=== PATIENT | male | born 1965 | race Caucasian/White ===

== ENCOUNTER 2022-09-17 18:03 | Inpatient (IN) | payer OTHER ==
[2022-09-17] VITALS (8 sets, daily range): BP systolic 116–125; BP diastolic 72–87
[~2022-09-17] VITALS: Ht 170.2 cm; Wt 96.1 kg
[~2022-09-17 18:03] MED LIST: aspirin 81mg tab.chew ONE; heparin 10,000 units/1 ML INJ ONE; heparin, porcine-25,000 units/D5-250ml premix IV ONE; metoprolol tartrate 1mg/ml inj IV ONE; nitroGLYCERIN in D5W 50mg/250ml (Tridil) infusion IV ONE
[2022-09-17] MEDS ORDERED: aspirin 81mg tab.chew PO ONE (18:15)
[2022-09-17] MEDS ORDERED: ondansetron/PF 4mg/2ml inj IV ONE (18:17)
[2022-09-17] MEDS: morphine 4 MG/ML inj SYRINge IV PRN ×2 (18:20→18:22)
[2022-09-17] MEDS ORDERED: midazolam 1 mg/ML 2ml injection ONE (18:20)
[2022-09-17] MEDS ORDERED: fentaNYL/PF 50MCG/1 ML 2ML syringe ONE (18:20)
[2022-09-17] MEDS ORDERED: heparin 1,000unit/ml 10ml vial 10 ML ONE (18:20)
--- NOTE | 2022-09-17 18:21 | NUR ---
to hospital laboratory technician
[2022-09-17] MEDS ORDERED: heparin 25,000 UNIT/250ml bag 250 ML IV PRN ×2 (18:25→18:39)
[2022-09-17 18:32] LABS: BASOPHILS # (AUTO) 0.1 X10'3 (0-0.2); BASOPHILS % (AUTO) 0.6 % (0-1); EOSINOPHILS # (AUTO) 0.6 X10'3 (0-0.9); EOSINOPHILS % (AUTO) 4.8 % (0-6); HEMATOCRIT 41.4 % (42.0-52.0); HEMOGLOBIN 13.7 g/dl (14.0-17.9); LYMPHOCYTES # (AUTO) 4.8 X10'3 (1.1-4.8); LYMPHOCYTES % (AUTO) 40.7 % (21-51); MEAN CORPUSCULAR HGB CONC 33.1 g/dL (33.0-36.5); MEAN CORPUSCULAR VOLUME 90.7 FL (78-98); MEAN PLATELET VOLUME 7.4 FL (7.4-10.4); MONOCYTES # (AUTO) 1.3 X10'3 (0-0.9); MONOCYTES % (AUTO) 10.8 % (2-12); NEUTROPHILS # (AUTO) 5.1 X10'3 (1.8-7.7); NEUTROPHILS % (AUTO) 43.1 % (42-75); PLATELET COUNT 307 X10'3 (140-440); RED BLOOD COUNT 4.57 X10'6 (4.70-6.10); RED CELL DISTRIBUTION WIDTH 13.2 % (11.5-14.5); WHITE BLOOD COUNT 11.7 X10'3 (4.5-11.0)
[2022-09-17] MEDS ORDERED: nitroGLYCERIN-Tridil 50MG/D5W 250 ML IV ONE (18:32)
[2022-09-17] MEDS ORDERED: ticagrelor 90mg tablet ONE (18:40)
[2022-09-17] MEDS ORDERED: iohexol 350MG/ML 100ml bottle IV ONE (18:40)
[2022-09-17 18:42] LABS: APTT 23 SECONDS (22-32)
[2022-09-17 18:53] LABS: ALANINE AMINOTRANSFERASE 39 U/L (12-78); ALBUMIN 3.8 G/DL (3.4-5.0); ALBUMIN/GLOBULIN RATIO 1.1 (1.1-1.5); ALKALINE PHOSPHATASE 81 IU/L (46-116); ANION GAP 11 (8-16); ASPARTATE AMINO TRANSFERASE 19 U/L (10-37); BILIRUBIN,TOTAL 0.3 MG/DL (0.1-1.0); BLOOD UREA NITROGEN 12 MG/DL (7-18); CALCIUM 8.7 MG/DL (8.5-10.1); CHLORIDE 105 MMOL/L (99-107); CREATININE 1.34 MG/DL (0.60-1.10); GLUCOSE 116 MG/DL (70-104); MAGNESIUM 1.9 MG/DL (1.5-2.4); POTASSIUM 3.2 MMOL/L (3.5-5.1); SODIUM 141 MMOL/L (135-145); TOTAL CARBON DIOXIDE 24.8 MMOL/L (24-32); TOTAL PROTEIN 7.2 G/DL (6.4-8.2); eGFR 55 ML/MIN
--- NOTE | 2022-09-17 19:25 | NUR ---
Patient arrived from cardiac cath technician on [facility] and was transferred to hospital bed w/o problem. Bedside report rec'd at bedside, patient's RCA was 100% occluded and 2 stents successfully placed. Patient is now resting comfortably with family at bedside, will remain flat until 2300 as access was right groin and perclose placed.
[2022-09-17] MEDS ORDERED: HYDROcodone/acetaminophen 10/325mg tab PO PRN (20:15)
[2022-09-17] MEDS: normal saline 1000ml 1,000 ML IV SCH (20:15)
[2022-09-18] VITALS (9 sets, daily range): BP systolic 93–112; BP diastolic 65–76
--- NOTE | 2022-09-18 05:53 | NUR ---
I have reviewed FRANCHESCA Roland's charting and agree with his assessments
--- NOTE | 2022-09-18 06:16 | NUR ---
Problems reprioritized. Patient report given, questions answered & plan of care reviewed with Larissa TATUM.
--- NOTE | 2022-09-18 06:38 | NUR ---
Patient in room PCU 3021. I have received report from Luan SORENSEN and had the opportunity to ask questions and assume patient care.
[2022-09-18] MEDS: normal saline 1000ml 1,000 ML IV SCH (07:25)
[2022-09-18] MEDS: ticagrelor 90mg tablet PO SCH ×2 (07:26→19:41)
[2022-09-18] MEDS ORDERED: metoprolol tartrate 25mg tablet PO SCH (08:00)
[2022-09-18] MEDS: aspirin 81mg tab.chew PO SCH (11:33)
--- NOTE | 2022-09-18 14:24 | NUR ---
AGREE WITH RC OBREGON AM ASSESSMENT
[2022-09-18] MEDS ORDERED: mag hydrox/Alum hydrox/simeth 30ml oral suspension PO ONE (14:40)
[2022-09-18] MEDS ORDERED: HYDR-3972 PO (16:46)
[2022-09-18] MEDS ORDERED: ASPI-611 PO (16:46)
--- NOTE | 2022-09-18 18:13 | NUR ---
Problems reprioritized. Patient report given, questions answered & plan of care reviewed with Luan SORENSEN.
[2022-09-18] MEDS ORDERED: atorvastatin 20mg tablet PO SCH (21:00)
[2022-09-19 03:00] VITALS: BP 107/73
[2022-09-19] MEDS: HYDROcodone/acetaminophen 5mg/325mg tablet PO PRN ×2 (03:39→13:24)
--- NOTE | 2022-09-19 06:16 | NUR ---
Problems reprioritized. Patient report given, questions answered & plan of care reviewed with Larissa TATUM.
--- NOTE | 2022-09-19 06:39 | NUR ---
I have reviewed FRANCHESCA Roland's chart and agree with his assessments.
[2022-09-19 07:00] VITALS: BP 109/65
[2022-09-19 07:08] LABS: BASOPHILS % (AUTO) 0.2 % (0-1); EOSINOPHILS % (AUTO) 0.1 % (0-6); HEMATOCRIT 35.7 % (42.0-52.0); HEMOGLOBIN 12.4 g/dl (14.0-17.9); LYMPHOCYTES # (AUTO) 1.9 X10'3 (1.1-4.8); LYMPHOCYTES % (AUTO) 12.4 % (21-51); MEAN CORPUSCULAR HEMOGLOBIN 31.3 PG (27.0-31.0); MEAN CORPUSCULAR HGB CONC 34.7 g/dL (33.0-36.5); MEAN CORPUSCULAR VOLUME 90.1 FL (78-98); MEAN PLATELET VOLUME 7.8 FL (7.4-10.4); MONOCYTES # (AUTO) 2.1 X10'3 (0-0.9); MONOCYTES % (AUTO) 13.9 % (2-12); NEUTROPHILS # (AUTO) 11.3 X10'3 (1.8-7.7); NEUTROPHILS % (AUTO) 73.4 % (42-75); PLATELET COUNT 204 X10'3 (140-440); RED BLOOD COUNT 3.96 X10'6 (4.70-6.10); RED CELL DISTRIBUTION WIDTH 13.6 % (11.5-14.5); WHITE BLOOD COUNT 15.3 X10'3 (4.5-11.0)
--- NOTE | 2022-09-19 07:19 | NUR ---
Patient in room PCU 3021. I have received report from Luan SORENSEN and had the opportunity to ask questions and assume patient care.
[2022-09-19 07:30] LABS: ALBUMIN 3.6 G/DL (3.4-5.0); ANION GAP 11 (8-16); BLOOD UREA NITROGEN 20 MG/DL (7-18); CALCIUM 8.7 MG/DL (8.5-10.1); CHLORIDE 103 MMOL/L (99-107); CHOL/HDL RATIO 3.6 (0.00-4.99); CHOLESTEROL 191 MG/DL (0-200); CREATININE 1.11 MG/DL (0.60-1.10); GLUCOSE 130 MG/DL (70-104); HDL CHOLESTEROL 53 MG/DL (35-60); LDL CHOLESTEROL 121 MG/DL (50-100); POTASSIUM 4.2 MMOL/L (3.5-5.1); SODIUM 137 MMOL/L (135-145); TOTAL CARBON DIOXIDE 23.1 MMOL/L (24-32); TRIGLYCERIDES 161 MG/DL (20-135); eGFR 68 ML/MIN
[2022-09-19 07:44] LABS: TOTAL CELLS COUNTED 100
[2022-09-19 07:45] LABS: PLATELET ESTIMATE NORMAL
[2022-09-19] MEDS ORDERED: lisinopril 5mg tablet PO SCH (08:00)
[2022-09-19] MEDS ORDERED: metoprolol succinate 25mg (24-HOUR) SR. Tablet PO SCH (08:00)
[2022-09-19 08:55] VITALS: BP_SYST 109
[2022-09-19] MEDS: ticagrelor 90mg tablet PO SCH (08:55)
[2022-09-19] MEDS: aspirin 81mg tab.chew PO SCH (08:55)
[2022-09-19] MEDS ORDERED: METO-395 PO (10:49)
[2022-09-19] MEDS ORDERED: ATOR20TA66 PO (10:49)
[2022-09-19] MEDS ORDERED: LISI5TAB22 PO (10:49)
[2022-09-19] MEDS ORDERED: CLOP-32 PO (10:49)
[2022-09-19] MEDS ORDERED: clopidogrel 300mg tablet PO ONE (10:50)
[2022-09-19] MEDS: normal saline 1000ml 1,000 ML IV SCH (12:19)
--- NOTE | 2022-09-19 14:45 | NUR ---
Patient discharged home. Patient is stable for discharge. IV and tele box removed and returned to telecommunications specialist. Patient escorted out by nurse and left via private vehicle. All belongings and discharge instructions sent home with patient.
[2022-09-20] MEDS ORDERED: clopidogrel 75mg tablet PO SCH (08:00)
== END 2022-09-19 14:56 | disposition home or self-care (01) | DRG 246 ==
LOC: ER 18:04 → PCU 3S 19:00
PROVIDERS: ADMIT Student in an Organized Health Care Education/Training Program; ATTEND Student in an Organized Health Care Education/Training Program
PROC: 4A023N7 Measurement of Cardiac Sampling and Pressure, Left Heart, Percutaneous Approach (ICD-10-PCS; principal; 2022-09-17)
PROC: 027035Z Dilation of Coronary Artery, One Artery with Two Drug-eluting Intraluminal Devices, Percutaneous Approach (ICD-10-PCS; 2022-09-17)
PROC: B2111ZZ Fluoroscopy of Multiple Coronary Arteries using Low Osmolar Contrast (ICD-10-PCS; 2022-09-17)
PROC: B41F1ZZ Fluoroscopy of Right Lower Extremity Arteries using Low Osmolar Contrast (ICD-10-PCS; 2022-09-17)
DX: I21.19 ST elevation (STEMI) myocardial infarction involving other coronary artery of inferior wall (principal); I50.21 Acute systolic (congestive) heart failure; F41.9 Anxiety disorder, unspecified; I25.10 Atherosclerotic heart disease of native coronary artery without angina pectoris; K21.9 Gastro-esophageal reflux disease without esophagitis; Z79.02 Long term (current) use of antithrombotics/antiplatelets; Z79.82 Long term (current) use of aspirin; Z79.899 Other long term (current) drug therapy; Z87.891 Personal history of nicotine dependence; Z88.0 Allergy status to penicillin
CPT/HCPCS: 93306; 93458; 99285; C9606; 36415; 71045; 80048; 80053; 80061; 83735; 83880; 84484; 85007; 85025; 85610; 85730; 87081; 93005; 99152; 99153; C1725; C1751; C1760; C1769; C1874; C1894; G0378; J1644; J2250; J2270; J2405; J3010; J3490; J7030; Q9967